=== PATIENT | female | born 1935 | race Caucasian/White ===

== ENCOUNTER 2017-01-03 12:00 | Day surgery (SDC) | payer MEDICARE ==
[~2017-01-03] VITALS: Ht 162.6 cm; Wt 55.0 kg
[~2017-01-03 12:00] MED LIST: 0.9% Sodium Chloride 1,000 ML IV SCH; ASPI-973 PO; CALC600T12 PO; CHOL400T30 PO; LUTE20CA8 PO; METO25TA6 PO; MULT-1073 PO; NITR100 PO; PREG50CA PO; Sodium Chloride LOK Flush 10 mL Syringe IV PRN; TERA2CAP4 PO; fentaNYL-PF 50 mCg/mL 2 mL Inj IVPUSH PRN
[2017-01-03] MEDS ORDERED: ATEN25TA PO (13:12)
[2017-01-03 13:15] VITALS: BP 146/86; PULSE 68; RESP 12; O2SAT 96
[2017-01-03 14:18] VITALS: BP 118/75; PULSE 69; RESP 14; O2SAT 92
[2017-01-03 14:25] VITALS: BP 126/71; PULSE 63; RESP 14; O2SAT 96
[2017-01-03 14:36] VITALS: BP 142/68; PULSE 64; RESP 14; O2SAT 95
--- NOTE | 2017-01-03 14:55 | ENDO ---
[address] [address] ENDOSCOPY PROCEDURE PATIENT: CHARLINE ANGULO : 1935 MR#: [id number] ADMIT: 01/03/2017 JOB ID: [id number] PROCEDURE: Colonoscopy. INDICATION: Abdominal pain. Patient's ASA classification is II. Mallampati score is II. MEDICATIONS: Versed at 3 mg, fentanyl 75 mcg. INSTRUMENT USED: PCF-H180AL. Prep quality was poor of the left colon and fair at of the remainder of the colon. PROCEDURE DETAILS: After informed consent was obtained, the patient was brought into the GI suite, where she was placed on oxygen via nasal cannula and monitored with continuous pulse oximeter, telemetry, and blood pressure monitoring. A time-out was performed. Then, she was placed in a left lateral decubitus position. Medications were administered for sedation. A digital rectal exam was performed which was unremarkable. The colonoscope was then inserted into the rectum and advanced under direct visualization to the cecum, which was identified by the presence of the ileocecal valve and appendiceal orifice. Once the cecum was reached, the colonoscope was withdrawn back into the rectum and the mucosa and lumen were examined. In the rectum, retroflexion was performed. Following retroflexion, remaining air in the rectum was suctioned, and procedure was completed. FINDINGS: 1. The prep of the descending colon was poor. Therefore, views were suboptimal. Also noted was severe diverticulosis making advancement of the scope to the cecum moderately difficult. 2. In the proximal ascending colon there were three colon polyps ranging in size from 5 mm to approximately 1 cm. The 5 mm polyp was removed with a hot snare. Following this there was bleeding at the polypectomy site. Therefore, one hemoclip was placed. 3. Just distal to this was a flat polyp measuring approximately 1 cm. The polyp was lifted using normal saline and then removed piecemeal with a combination of hot snare and hot biopsy forceps. The resulting mucosal defect was approximated with placement of one hemoclip. I attempted to place another hemoclip just superior to the previously placed hemoclip. However, I was unable to get adequate tilt position to deploy the clip. 4. Just adjacent to this was a another flat polyp measuring approximately 8 mm. I elected to remove this polyp with Jumbo biopsy forceps. IMPRESSION: 1. Three ascending colon polyps. 2. Severe sigmoid diverticulosis. 3. Poor prep of the left colon. RECOMMENDATIONS: Repeat colonoscopy in one year. COMPLICATIONS: None. ESTIMATED BLOOD LOSS: Less than 5 mL.
--- NOTE | 2017-01-07 12:44 | PATH ---
SURGICAL PATHOLOGY Attending Physician:Marilyn Bolanos CASE STATUS: Signed Out PATIENT NAME: CHARLINE ANGULO PID: [id number] : 1935 DATE COLLECTED:01/03/2017 00:00 SPECIMEN: Colon, Biopsy CLINICAL HISTORY: 1). ASCENDING COLON POLYPS X3 FINAL DIAGNOSIS: 1.ASCENDING COLON POLYPS: SESSILE SERRATED ADENOMAS (THREE). A SINGLE FOCUS OF LOW-GRADE DYSPLASIA IS PRESENT. NO EVIDENCE OF MALIGNANCY OR HIGH-GRADE DYSPLASIA. ICD10 CODE D12.6 GROSS DESCRIPTION: The specimen is received in one formalin filled container labeled with the patient's name, sublabeled "ascending colon polyps" and consists of multiple portions of tissue which aggregate to 0.7 x 0.6 x 0.4 CM. The specimen is filtered and entirely submitted in one cassette. 01/04/2017 [facility] MICRO DESCRIPTION: See diagnosis. ICD-9 CODES: CPT CODES: 1: 14878 Electronically Signed Out Jose G Reece MD [facility] [address], [place] [address] Technical component performed at [facility], [address] [place] [address] Ave[address], [place], [address]
== END 2017-01-03 23:59 | disposition home or self-care (01) ==
LOC: END 12:00
PROVIDERS: ATTEND Internal Medicine Gastroenterology
DX: Z12.11 Encounter for screening for malignant neoplasm of colon (principal); Z86.010 Personal history of colon polyps; D12.2 Benign neoplasm of ascending colon; K57.30 Diverticulosis of large intestine without perforation or abscess without bleeding; I10 Essential (primary) hypertension; Z79.82 Long term (current) use of aspirin
CPT/HCPCS: 45380; 45381; 45385; 88305; 99153; G0500; J2250; J3010; J7030

== ENCOUNTER 2017-06-14 14:02 | Observation (INO) | payer MEDICARE ==
[~2017-06-14] VITALS: Ht 162.6 cm; Wt 54.0 kg
[2017-06-14] VITALS (18 sets, daily range): BP systolic 131–170; BP diastolic 64–94; PULSE 57–78; RESP 13–20; O2SAT 93–98
[~2017-06-14 14:02] MED LIST changes: -0.9% Sodium Chloride 1,000 ML IV SCH; +ATEN25TA PO; -NITR100 PO; -Sodium Chloride LOK Flush 10 mL Syringe IV PRN; -fentaNYL-PF 50 mCg/mL 2 mL Inj IVPUSH PRN
[2017-06-14] MEDS ORDERED: LATA2.5D6 BOTH_EYES (14:21)
[2017-06-14] MEDS ORDERED: CALCIT PO (14:21)
[2017-06-14 14:25] LABS: BASOPHILS % (AUTO) 0.2 % (0-3); EOSINOPHILS % (AUTO) 0.2 % (0-5); MONOCYTES % (AUTO) 8.8 % (4-12); Mean Corpuscular Volume 94.2 fL (81-100); Platelet Count 187 bil/L (150-400)
[2017-06-14] MEDS ORDERED: Nitroglycerin 2% 1 Gm Ointment TOPICAL ONE (14:35)
[2017-06-14 14:49] LABS: TROPONIN T < 0.010 ug/L (0.0-0.011)
[2017-06-14 14:52] LABS: Magnesium 2.2 mg/dL (1.6-2.6)
--- NOTE | 2017-06-14 15:04 | ED.REPORT ---
HPI-Chest Pain 40 and Over Date of Service Jun 14, 2017 ED Provider: Sukhjinder Carrion DO Patient is a 81 year old female with a hx of HTN, GERD and arthritis who presents to the ED via EMS c/o intermittent left side chest pain onset about 12: 00 today. She describes pain as radiating to the left side of her neck and rates severity as 3/10. Patient has had pain as intermittent for the last 2 weeks and worsens with exertion. Additional symptoms include shortness of breath and palpitations. She denies nausea or diaphoresis. Urgent Clinic gave aspirin and nitro which has relieved symptoms temporarily. She takes amlodipine and metoprolol for HTN, and Lyrica for arthritis. Her last echocardiogram was in 2013 showing an ejection fraction of 60%, and mild mitral regurgitation. Nursing Notes Stated Complaint: CHEST PAIN Chief Complaint: Chest Pain Nursing Notes Reviewed: Yes Allergies: Coded Allergies: QUYEN Inhibitors (Verified Allergy, Unknown, 01/03/17) Penicillins (Verified Allergy, Unknown, 01/03/17) Uncoded Allergies: AM (Allergy, Unknown, 06/25/15) Scheduled Aspirin (Aspirin) 81 Mg Tablet 162 MG PO BID Calcium Citrate (Calcium Citrate) 250 Mg Tablet 250 MG PO DAILY Cholecalciferol (Vitamin D3) (Vitamin D) 400 Unit Tablet 400 UNIT PO DAILY Latanoprost (Latanoprost) 2.5 Ml Drops 1 GTT BOTH_EYES HS Lutein (Lutein) 20 Mg Capsule 20 MG PO DAILY Metoprolol Tartrate (Metoprolol Tartrate) 25 Mg Tablet 25 MG PO BID Multivits-Min/FA/Lycopene/Lut (Centrum Silver Tablet) 1 Each Tablet 1 EACH PO DAILY Pregabalin (Lyrica) 50 Mg Capsule 50 MG PO BID Terazosin (Terazosin) 2 Mg Capsule 2 MG PO BID General Time Seen by MD: 14:24 Chief Complaint Chest pain Hx Obtained From: Patient, Son, Daughter Arrived By: Ambulance Sudden in Onset?: Yes Onset Occurred: 1 - 4 hours ago Symptom Duration: Intermittent Location: : Chest left Quality: Pressure Radiation: : Neck Severity: Current: Pain level 3 out of 10 Severity: Maximum: Pain level 5 out of 10 Recent Healthcare: No recent doctor visit Similar Sx Previous: No Risk Factors )( CAD Risk Stratification Hypertension )( TAD Risk Stratification Hypertension Past Medical History Past Medical History Rheumatic fever Mitral valve disease Reports: Hypertension Past Surgical History Reports: Tonsillectomy Smoking History Unknown if Ever Smoker Social History Other Social History: Good social support Review of Systems Respiratory: Reports: Shortness of breath Cardiovascular: Reports: Chest pain, Palpitations GI: Denies: Diarrhea, Nausea, Vomiting Musculoskeletal: Reports: Myalgia, Denies: Back pain Skin: Denies Diaphoresis, Denies Rash Complete sys rev & neg: except as marked. Physical Exam Initial Vital Signs Vital Signs (First) Date Time Temp Pulse Resp B/P Pulse Ox O2 Delivery O2 Flow Rate FiO2 06/14/17 14:15 37.0 73 16 153/83 95 Room Air Initial VS: Reviewed, Vital signs normal Head / Eyes: Atraumatic, Normocephalic Neck: Supple, Full range of motion Skin: Warm, Dry, No cyanosis Neurologic: Alert, Oriented, Nonfocal Psychiatric: Mood/affect normal, Behavior normal, Normal thought content General/Constitutional: Awake, Alert, No acute distress, Cooperative, Not toxic appearing Respiratory / Chest: Atraumatic, Breath sounds NL, Breath sounds = bilat, No respiratory distress Cardiovascular: Heart rate NL, Regular rhythm 2/6 Systolic murmur heard best at lower strenal border No peripheral edema Abdomen: Atraumatic, Soft Interpretation & Diagnostics Lab Results Interpretation Result Diagram: 06/14/17 1421 06/14/17 1421 Test 06/14/17 14:21 06/14/17 14:39 White Blood Count 8.2th/mm3 (3.8-10.1) Red Blood Count 4.51mil/mm3 (3.90-5.20) Hemoglobin 14.0g/dL (12.0-15.6) Hematocrit 42.5% (35.0-46.0) Mean Corpuscular Volume 94.2fL (81-100) Mean Corpuscular Hemoglobin 31.0pg (27.0-35.0) Mean Corpuscular Hemoglobin Concent 32.9% (32.0-37.0) Red Cell Distribution Width 14.5% (12.3-15.4) Platelet Count 187bil/L (150-400) Neutrophils (%) (Auto) 60.0% (40-74) Lymphocytes (%) (Auto) 30.7% (14-46) Monocytes (%) (Auto) 8.8% (4-12) Eosinophils (%) (Auto) 0.2% (0-5) Basophils (%) (Auto) 0.2% (0-3) Sodium Level 142mEq/L (134-144) Potassium Level 3.5mEq/L (3.5-5.2) Chloride Level 102mEq/L (97-108) Carbon Dioxide Level 25mmol/L (18-29) Blood Urea Nitrogen 11mg/dL (8-27) Creatinine 0.53mg/dL (0.57-1.00) Estimat Glomerular Filtration Rate 159mL/min (>59) Glucose Level 97mg/dL (60-99) Calcium Level 9.9mg/dL (8.5-10.1) Magnesium Level 2.2mg/dL (1.6-2.6) Total Bilirubin 0.4mg/dL (0.0-1.2) Aspartate Amino Transf (AST/SGOT) 22U/L (0-50) Alanine Aminotransferase (ALT/SGPT) 13U/L (0-32) Alkaline Phosphatase 71U/L (25-165) Troponin T < 0.010ug/L (0.0-0.011) Total Protein 6.6g/dL (6.4-8.4) Albumin 4.2g/dL (3.4-5.0) Hold Purple Top Tube Received (Received) Hold Blue Top Tube Received (Received) Hold Red Top Tube Received (Received) Hold [place] Top Tube Received (Received) Hold Mendoza Top Tube Received (Received) ECG Interpretation ECG Interpretation: Sinus rhythm, rate 75 Left venticular hypertrophy No acute ST changes No change from 06/25/2015. Time: 14:25 Interpreted by: ED physician X-Ray Chest Interpretation Chest Xray Interpretation: IMPRESSION: No radiographic evidence of acute cardiopulmonary pathology. Dictated by: Rock Chavarria M.D. on 06/14/2017 at 15:16 Approved by: Rock Chavarria M.D. on 06/14/2017 at 15:18 View: Portable, 1 view Re-Eval/Medical Decision Med Decision/Clinical Course 81-year-old female with a history of hypertension, GERD, and mitral valve disease related to rheumatic fever presents with several days of intermittent exertional chest pressure on the left side that has recently worsened. She came today because the pain was not relieved with rest and was worse than before. Today it started around noon and she rated it at a 5 out of 10. It radiated to her left jaw and was associated with some shortness of breath., It was relieved at the urgent care with nitroglycerin and aspirin. Her EKG shows no acute findings, her chest x-ray is normal, and her troponin initially is negative. Given her history of unstable angina, she needs to be admitted with further evaluation, likely including a stress test. I reviewed her echocardiogram from 2013 that showed an EF of 60% with mild mitral regurgitation. There are no signs of heart failure on her physical exam today. Patient is agreeable to stay here with us. Source of Hx: Old records Time of Eval: 15:15 Patient Status: Condition improved Re-Evaluation/Progress Note: Discussed plan for admission. Patient understands and agrees with plan. All questions addressed. Consultation : Referral / Consult Name: Elmer Joya MD Consulted With: Hospitalist Call Returned at: 16:30 Rv Servicer: Will see patient, Agrees with plan, Accepts admit Counseled Regarding: Diagnosis, Lab results, Need for admission Discharge & Departure Primary Impression: Chest pain Chest pain type: precordial pain Qualified Code: R07.2 - Precordial pain Additional Impression: Unstable angina Disposition: ADMITTED TO HOSPITAL Discharge Condition All VS Reviewed: Yes Condition: Stable Referrals: Giovana Austin MD (PCP) Scribe Attestation Portions of this note were transcribed by Otilia Hernandez and Dulce Maria Kidd. I, Dr. Carrion, personally performed the history, physical exam and medical decision-making; I reviewed and confirmed the accuracy of the information in the transcribed note. copies to: Giovana Austin MD, Gary R DO Jun 14, 2017 15:04 Otilia Hernandez Jun 14, 2017 15:12 DULCE MARIA KIDD Jun 14, 2017 16:14
--- NOTE | 2017-06-14 15:19 | DRSVH ---
PROCEDURE: X-RAY CHEST ONE VIEW, PORTABLE ([id number]) INDICATIONS: chest pain TECHNIQUE: One view of the chest was acquired. COMPARISON: [facility], CR, XR CHEST 1VW (PORTABLE), 06/25/2015, 15:32. FINDINGS: Surgical changes and devices: None. Lungs and pleura: No pleural effusions or pneumothorax. Lungs are clear. Mediastinum: Mediastinal contours appear normal. Heart size is normal. Bones and chest wall: No suspicious bony lesions. Overlying soft tissues appear unremarkable. IMPRESSION: No radiographic evidence of acute cardiopulmonary pathology. Dictated by: Rock Chavarria M.D. on 06/14/2017 at 15:16 Approved by: Rock Chavarria M.D. on 06/14/2017 at 15:18
[2017-06-14] MEDS ORDERED: Atropine 1 mg/10 mL (Code) Syringe IVPUSH PRN (16:35)
[2017-06-14] MEDS ORDERED: Ondansetron 2 mg/mL 2 mL Inj IVPUSH PRN (16:35)
[2017-06-14] MEDS ORDERED: Alum-Mag Hydrox-Simeth 30 mL Suspension PO PRN (16:35)
[2017-06-14] MEDS ORDERED: Polyethylene Glycol (PEG) 17 Gm Powder PO PRN (16:35)
[2017-06-14] MEDS ORDERED: Senna-Docusate 8.6-50 mg Tablet PO PRN (16:35)
--- NOTE | 2017-06-14 18:09 | PCM.HPMED ---
Subjective Date of Service Jun 14, 2017 Primary Provider: Admitting Physician: Elmer Joya MD Primary Care Physician: Giovana Austin MD Attending Physician: Elmer Joya MD Admit Status: From the Emergency Department, Admit to [facility] Team Chief Complaint: 81-year-old woman with a history of hypertension presents with exertional chest pressure History of Present Illness: The patient is fully active and manages her home and garden. Approximate 2 months ago she noticed onset of a episodic left precordial heaviness sensation with activity. The discomfort is located left of the sternum without radiation. It is precipitated by activities within 5 minutes of getting up and moving around. It is relieved with rest. Character is heaviness, not pain. It is associated with a sense of weakness in her legs. Most episodes have been brief and responsive promptly to rest. On the day of admission at approximately 10 AM she experienced the same complaint but somewhat increased intensity. She was advised to go to urgent care where they gave her needed nitroglycerin and she experienced pain relief. The urgent care note documented 30 minutes of chest pain prior to arrival. She reports symptom relief with nitroglycerin at urgent care, then recurrent pain at [facility] emergency department. Today's chest discomfort was associated with radiation to the left side of the neck, but no nausea, diaphoresis, epigastric, arm or back complaints. This complaint is new as of 2 months ago. She has no prior history of coronary artery disease. Review of Systems: 11 systems were reviewed with no significant findings other than those in the history of present illness. She experienced periodic burning dysesthesia of hands and feet due to erythromelalgia. Allergies Coded Allergies: QUYEN Inhibitors (Verified Allergy, Unknown, 01/03/17) Penicillins (Verified Allergy, Unknown, 01/03/17) Uncoded Allergies: AM (Allergy, Unknown, 06/25/15) Home Medications Aspirin 81 mg daily Pregabalin 50 mg twice a day Metoprolol 25 mg twice a day Terazosin 2 mg at bedtime Vitamin D and calcium supplement Latanoprost eyedrops every evening PMH # Hypertension # Erythromelalgia excellent # history of rheumatic fever with murmur # Mild cognitive impairment # Chest pain is listed in her record dated from 2013 but patient does not recall this. Family History Colon cancer. No premature coronary artery disease. Social History Occupation: retired Hx Alcohol Use: No Hx Substance Use: No Hx Tobacco Use: No Smoking Status: Unknown if Ever Smoker Living Arrangement: Alone (son lives nearby) Additional Information Ambulates independently. She manages full ADLs. Walks daily for exercise. 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 Exam Vital Signs Vital Sign - Last Date Time Temp Pulse Resp B/P Pulse Ox O2 Delivery O2 Flow Rate FiO2 06/14/17 17:32 37.0 66 15 134/74 95 Room Air Exam Constitutional: appears fairly uncomfortable; no acute distress; vital signs noted Eyes: sclerae anicteric, no conjunctival pallor, ENMT: ears, nose atraumatic; oral mucosa is moist Neck: supple, JVD absent, no bruit Chest: symmetric, no pain or lesions Resp: auscultation clear, no wheezes, rales or dullness Cardiac: S1, S2, regular, I/ systolic murmur at [facility] Abdomen: bowel sounds present, nontender, no organomegaly Musculoskeletal: no joints with acute erythema, swelling Skin and soft tissues: no rash; no pitting edema; no palmar erythema Lymphatic: no adenopathy cervical Neurological: Cranial Nerves - face symmetric Reflexes - BJ, KJ symmetric diminished Motor - normal strength, normal tone Coordination - normal movement, no tremor Sensory - light touch intact in toes Psych & Mental Status - oriented but small cognitive omissions and confusions Lab and Diagnostics Labs Initial troponin less than 0.01 Result Diagram: 06/14/17 1421 06/14/17 1421 X-Rays, CTs and MRIs PROCEDURE: X-RAY CHEST ONE VIEW, PORTABLE ([id number]) IMPRESSION: No radiographic evidence of acute cardiopulmonary pathology. Dictated by: Rock Chavarria M.D. on 06/14/2017 at 15:16 . 12-lead ECG 06/14/17 sinus rhythm rate 75, QRS axis -40, Q waves V1 and V2 but no acute ST or T-wave changes. Assessment & Plan 81-year-old woman with history of hypertension presents with chest pressure complaint most suggestive of unstable angina. Reproducible transient exertional pain seems unlikely to be gastrointestinal, vascular dissection, pleuritic or chest wall. Transient esophageal spasm is possible. Pretest probability for coronary artery disease is high due to exertional chest pain responsive to nitroglycerin. # Chest pressure, acute. - Serial troponins, ECG for recurrent symptoms, - nitroglycerin and morphine when necessary - Continue her current metoprolol; increased dose if hypertensive - Therapeutic anticoagulation with subcutaneous Lovenox - low likelihood of urgent catheterization - Telemetry monitoring - Exercise treadmill with Lisseth back up nuclear perfusion scan in a.m. if troponins remain flat line - Complete echocardiogram - check d-dimer # Hypertension, acute on chronic. BP 153/83 at time of admission. - Continue her usual metoprolol - Amlodipine as needed # Hypokalemia, borderline. Present on admission. Potassium 3.5. - Supplement to K greater than 4.0 - Repeat BMP in a.m. # Mild cognitive impairment, chronic. High risk for hospital delirium - Minimize benzodiazepine and anticholinergic medications Disposition: Patient will be admitted under observation status. Expectation that cardiac source of chest pain will be defined by tomorrow afternoon. If negative she may be able to discharge home on 06/15. If she develops NSTEMI or other acute medical complications then status will be changed to inpatient. Pain Evaluation: Adequate Pain Control VTE Prophylaxis: Sub-Q Enoxaparin Resuscitation Status: DNR/DNI:Do Not Resuscitate/Intubate Time spent 60 minutes Elmer Joya MD Jun 14, 2017 18:09
[2017-06-14 18:11] LABS: APPEARANCE,URINE CLEAR (CLEAR,HAZY); COLOR,URINE YELLOW (YELLOW); OCCULT BLOOD,URINE NEGATIVE (NEGATIVE); PH,URINE 5.5 (5.0-8.0); UROBILINOGEN,URINE NORMAL (NORMAL)
--- NOTE | 2017-06-14 18:27 | PCM.ADCARE ---
Advance Care Planning Note Purpose of Encounter: Clarify goals of care in the setting of cardiac arrest Parties in Attendance: The patient, Dr. Joya Decisional Capacity: The patient is alert and appropriate and demonstrates insight into her medical affairs, albeit with very mild cognitive impairment. Subjective: When asked regarding instructions in the event of a catastrophic cardiac or respiratory event, the patient indicated that she would not wish to be sustained in a state of reduced health quality or physical dependency. She reflected that she has lived a long life and lost her recently. She added that she has a good quality of life and activities with her grandchildren for which she would like to return to her current functional status. For this reason she would wish for reversible conditions to be treated fully. She identified prolonged hospitalization, living in a fci or significant physical or neurological impairment as outcomes that she would not welcome. Goals of Care Determinations: Patient endorsed DO NOT RESUSCITATE and DO NOT INTUBATE in the setting of cardiac arrest or acute respiratory arrest. Plan: DO NOT RESUSCITATE/DO NOT INTUBATE otherwise full medical treatment for reversible conditions. Time Spent Adv.Care Plannin minutes Adv. Care Plan Documenation: CODE STATUS ordered in admission orders set Elmer Joya MD Jun 14, 2017 18:27
[2017-06-14 18:31] LABS: Creatine Kinase 62 U/L (21-215); Magnesium 2.2 mg/dL (1.6-2.6)
--- NOTE | 2017-06-14 18:43 | NUR ---
Arrived 1727 - Received report from Cecilia Gloria RN in the ED. 1752 - Cecilia said she was complaining of increased chest pain and that 2 mg of IV morphine was given to her. 1824 - She arrived to [facility] 2029 and was settled into her room. Non-skid socks placed, telemetry placed (SR 70s per [employer]), given the call light. She stated upon standing up from the gurney and going to the bed that she was dizzy. She thought this was from the fact of not having eaten anything all day. Was given a dinner tray and is now eating. Son present in the room. Admit already completed by the admit nurse. Assessment completed by this nurse including the skin check (no skin issues found). Denies chest pain at this time. Care continues.
[2017-06-14 18:44] LABS: TROPONIN T < 0.010 ug/L (0.0-0.011)
[2017-06-14] MEDS: 0.9% Sodium Chloride 1,000 ML IV SCH (19:55)
[2017-06-14 23:19] LABS: Creatine Kinase 69 U/L (21-215)
[2017-06-15] MEDS: Sodium Chloride LOK Flush 10 mL Syringe IVFLUSH SCH ×2 (00:30→07:42)
--- NOTE | 2017-06-15 02:56 | NUR ---
Tele Pt in room alert and oriented, in good spirits after dinner, family in room to aid with information. No C/O pain or SOB. A&O x 3 using call light appropriately. NS @ 80 in left AC IV. Room Air. Tele SR 56 to SR.
[2017-06-15 03:11] VITALS: BP 135/76; PULSE 55; RESP 18; O2SAT 93
[2017-06-15 03:42] LABS: BASOPHILS % (AUTO) 0.4 % (0-3); EOSINOPHILS % (AUTO) 1.6 % (0-5); MONOCYTES % (AUTO) 13.2 % (4-12); Mean Corpuscular Hemoglobin 30.9 pg (27.0-35.0); Mean Corpuscular Volume 91.9 fL (81-100); NEUTROPHILS % (AUTO) 47.3 % (40-74); Platelet Count 185 bil/L (150-400)
[2017-06-15 05:40] VITALS: PULSE 58
[2017-06-15 07:32] VITALS: BP 165/82; PULSE 62; RESP 16; O2SAT 96
[2017-06-15] MEDS: 0.9% Sodium Chloride 1,000 ML IV SCH (07:42)
[2017-06-15 08:00] VITALS: PULSE 73
--- NOTE | 2017-06-15 09:46 | DRSVH ---
PROCEDURE: CT ANGIO CHEST PULMONARY EMBOLISM ([id number]) INDICATIONS: 82 year-old female with chest pain and elevated d-dimer level. TECHNIQUE: After the administration of intravenous contrast, 2 mm thick sections acquired from the pulmonary api philip to the posterior costophrenic angles. 3-dimensional maximum intensity projection (MIP) coronal a nd sagittal reformats were then acquired through the thorax. For radiation dose reduction, the follo wing was used: automated exposure control, adjustment of mA and/or kV according to patient size. COMPARISON: [facility], CT, CT ABD PELVIS W CON, 03/20/2017, 11:19. FINDINGS: Image quality: Excellent. Pulmonary arteries: Pulmonary arteries are normal in size, and demonstrate no intraluminal filling d efects to suggest central pulmonary embolism. Lungs and pleura: No acute airspace opacities. There is bibasilar dependent atelectasis, as well as lateral right upper lobe scarring. Scattered punctate calcified granulomas are also present. No pleur al effusions or pneumothorax. Central and peripheral airways are patent. Mediastinum: Heart size is upper normal, without pericardial effusion. No mediastinal or hilar lam opathy. Thoracic aorta is normal in caliber and enhancement. Esophagus is normal in caliber, withou t hiatal hernia. Bones and chest wall: No suspicious bony lesions. Ribs and thoracic spine appear intact throughout. Thyroid gland is normal in overall size. No axillary or supraclavicular adenopathy. Abdomen: Visualized upper abdominal solid organs appear normal in the early arterial phase of enhanc ement. IMPRESSION: 1. No evidence for central pulmonary embolism. 2. No acute pulmonary disease. Pulmonary remote granulomatous disease. Dictated by: Dennis Rose M.D. on 06/15/2017 at 9:37 Approved by: Dennis Rose M.D. on 06/15/2017 at 9:44
[2017-06-15] MEDS ORDERED: hydrALAZINE 20 mg/mL Inj IV ONE (10:35)
[2017-06-15 12:37] VITALS: BP 182/92; PULSE 66; RESP 16; O2SAT 95
--- NOTE | 2017-06-15 13:10 | NUR ---
JOSUÉ explained and signed. Copy of JOSUÉ and Medicare self administered medication information given to pt.
--- NOTE | 2017-06-15 13:11 | DRSVH ---
CORRECTED PROCEDURE NAME AND ACCESSION/PLACER # ON 06/16/17 PROCEDURE: NM CARDIAC STRESS TEST SINGLE Rest and exercise myocardial perfusion SPECT with gated imaging and ejection fraction RADIOPHARMACEUTICAL: 21.7 mCi Tc-99m tetrafosmin IV at peak exercise. Rest images were not obtained . [id number] was performed. INDICATIONS: CP. TECHNIQUE: Radiopharmaceutical was injected at peak stress test, and also at rest. SPECT images wer e obtained. SPECT myocardial perfusion images were displayed in short axis, horizontal long axis, an d vertical long axis views. Gated images were reviewed using [employer] software. COMPARISON: None. CARDIAC STRESS: A standard Jem treadmill exercise tolerance test was performed by the patient under the supervision of an attending staff. The patient exercised for 6 minutes and 9 seconds, reaching 7 METs; function al aerobic impairment (TIMOTHY) is -27%. Hemodynamic data: There is normal blood pressure and heart rate response to exercise stress. Patien t achieved 101% of maximum predicted heart rate at peak exercise. Symptoms: Patient mild chest pain during exercise. EKG: No diagnostic EKG changes of ischemia; Occasional PACs and PVCs during stress and recovery. FINDINGS: Raw data: There is good myocardial labeling by radiotracer. No significant motion artifacts. Left ventricle function: Gated images demonstrate normal left ventricle wall thickening. No segment al wall motion abnormality. No transient ischemic dilation. The left ventricle resting end-diastoli c volume is 51 mL. Left ventricle stress ejection fraction is 87%; normal values are above 45%. Myocardial perfusion: Mild defect present at the basal to mid inferolateral wall during stress supin e images that resolves with prone images suggesting artifact. No ischemia or infarction present. IMPRESSION: Normal treadmill nuclear stress test. One day stress only protocol used. 1) Normal perfusion images, with no ischemia and no infarction. Mild defect present at the basal to m id inferolateral wall during stress supine images that resolves with prone images suggesting artifact . 2) Normal left ventricular size, wall motion, and function (post stress EF 87%). 3) No ECG evidence of ischemia. Occasional PACs and PVCs present during stress and recovery. 4) Non-diagnostic chest pain during the stress test. 5) Good exercise tolerance (7 METs, TIMOTHY -27%). Target heart rate reached. Appropriate hemodynamic r esponse to exercise. 6) No prior nuclear stress test available for comparison. Dictated by: Phyllis Wallace M.D. on 06/15/2017 at 13:04 Approved by: Phyllis Wallace M.D. on 06/15/2017 at 13:10
[2017-06-15] MEDS ORDERED: NITR0.4T SL (14:32)
--- NOTE | 2017-06-15 14:35 | PCM.DIMED ---
Discharge Instructions Date of Service Jun 15, 2017 Dates of Hospitalization Jun 14, 2017 at 17:17 Discharge Diagnosis Discharge Diagnosis Exertional dyspnea, Chest pressure, Mild cognitive impairment Medication Instructions Additional med instructions Nitroglycerin tablets have been prescribed. You may take 1 tablet under the tongue when you have chest pressure. You should also sit and rest; be careful in case this makes her dizzy. You may repeat after 5 minutes. If this does not help in that time then you do not need to take more nitroglycerin. Tell your doctor whether nitroglycerin seems to help with your chest pressure and shortness of breath. Diet Discharge Diet: No restrictions Activity Discharge Activity: Other (Be careful with physical activities, take these at an appropriate slow pace if you are having shortness of breath or chest pressure.) Patient Instructions Patient Instructions Try to keep track of the circumstances under which you feel chest pressure. It may be helpful to stay with family members who can help you keep track of any problems. If you experience worsening chest discomfort or any new symptoms, then you should call 911 or your doctor's office promptly. Follow-up Provider: Giovana Austin MD Follow-up with PCP in: 1 week Elmer Joya MD Jun 15, 2017 14:35
--- NOTE | 2017-06-15 15:07 | PCM.DC.MED ---
Discharge Summary Date of Service Jun 15, 2017 Dates of Hospitalization Date of Hospital Admission Jun 14, 2017 at 17:17 Date of Discharge: Jun 15, 2017 Providers: Admitting Physician: Tony Wiley MD Primary Care Physician: Giovana Austin MD Attending Physician: Tony Wiley MD Diagnosis at Time of Discharge Diagnosis at Time of Discharge Exertional dyspnea, Chest pressure, Mild cognitive impairment Procedures XRay, CTs & MRIs PROCEDURE: X-RAY CHEST ONE VIEW, PORTABLE ([id number]) IMPRESSION: No radiographic evidence of acute cardiopulmonary pathology. Dictated by: Rock Chavarria M.D. on 06/14/2017 at 15:16 . ECG 12 Lead 06/14/17 sinus rhythm rate 75, QRS axis -40, Q waves V1 and V2 but no acute ST or T-wave changes. Other Diagnostics PROCEDURE: CT ANGIO CHEST PULMONARY EMBOLISM ([id number]) IMPRESSION: 1. No evidence for central pulmonary embolism. 2. No acute pulmonary disease. Pulmonary remote granulomatous disease. Dictated by: Dennis Rose M.D. on 06/15/2017 at 9:37 PROCEDURE: 1 DAY STRESS TEST Rest and exercise myocardial perfusion SPECT with gated imaging and ejection fraction RADIOPHARMACEUTICAL: 21.7 mCi Tc-99m tetrafosmin IV at peak exercise. Rest images were not obtained. [id number] was performed. INDICATIONS: CP. TECHNIQUE: Radiopharmaceutical was injected at peak stress test, and also at rest. SPECT images were obtained. SPECT myocardial perfusion images were displayed in short axis, horizontal long axis, and vertical long axis views. Gated images were reviewed using [employer] software. COMPARISON: None. CARDIAC STRESS: A standard Jem treadmill exercise tolerance test was performed by the patient under the supervision of an attending staff. The patient exercised for 6 minutes and 9 seconds, reaching 7 METs; functional aerobic impairment (TIMOTHY) is - 27%. Hemodynamic data: There is normal blood pressure and heart rate response to exercise stress. Patient achieved 101% of maximum predicted heart rate at peak exercise. Symptoms: Patient mild chest pain during exercise. EKG: No diagnostic EKG changes of ischemia; Occasional PACs and PVCs during stress and recovery. FINDINGS: Raw data: There is good myocardial labeling by radiotracer. No significant motion artifacts. Left ventricle function: Gated images demonstrate normal left ventricle wall thickening. No segmental wall motion abnormality. No transient ischemic dilation. The left ventricle resting end-diastolic volume is 51 mL. Left ventricle stress ejection fraction is 87%; normal values are above 45%. Myocardial perfusion: Mild defect present at the basal to mid inferolateral wall during stress supine images that resolves with prone images suggesting artifact. No ischemia or infarction present. IMPRESSION: Normal treadmill nuclear stress test. One day stress only protocol used. 1) Normal perfusion images, with no ischemia and no infarction. Mild defect present at the basal to mid inferolateral wall during stress supine images that resolves with prone images suggesting artifact. 2) Normal left ventricular size, wall motion, and function (post stress EF 87%). 3) No ECG evidence of ischemia. Occasional PACs and PVCs present during stress and recovery. 4) Non-diagnostic chest pain during the stress test. 5) Good exercise tolerance (7 METs, TIMOTHY -27%). Target heart rate reached. Appropriate hemodynamic response to exercise. 6) No prior nuclear stress test available for comparison. Dictated by: Phyllis Wallace M.D. on 06/15/2017 at 13:04 .. Brief History History of Present Illness (per admission note): The patient is fully active and manages her home and garden. Approximate 2 months ago she noticed onset of a episodic left precordial heaviness sensation with activity. The discomfort is located left of the sternum without radiation. It is precipitated by activities within 5 minutes of getting up and moving around. It is relieved with rest. Character is heaviness, not pain. It is associated with a sense of weakness in her legs. Most episodes have been brief and responsive promptly to rest. On the day of admission at approximately 10 AM she experienced the same complaint but somewhat increased intensity. She was advised to go to urgent care where they gave her needed nitroglycerin and she experienced pain relief. The urgent care note documented 30 minutes of chest pain prior to arrival. She reports symptom relief with nitroglycerin at urgent care, then recurrent pain at [facility] emergency department. Today's chest discomfort was associated with radiation to the left side of the neck, but no nausea, diaphoresis, epigastric, arm or back complaints. This complaint is new as of 2 months ago. She has no prior history of coronary artery disease. . Hospital Course # Chest pressure, acute. - High prior probability of coronary disease with: Left precordial location, exercise trigger, relief with nitroglycerin. Her reporting was occasionally inconsistent, and on one or 2 occasions she reports chest heaviness at rest. 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 Echocardiogram from 2013 shows no cardiac disease. Echo was not repeated during this week and admission may be considered as an outpatient. She has II/ ejection murmur at [facility]. - Final diagnosis is either low risk angina versus noncardiac chest pain ( esophageal spasm). Given her history of symptomatic relief with nitroglycerin, sublingual nitroglycerin tablets were prescribed for symptom management. - Beta heladio continued. Low-dose aspirin. Medium intensity statin decision deferred to primary care provider, as there is no clear diagnosis of coronary disease at this time. - She is encouraged to keep track of symptoms including precipitants and circumstances. Due to her mild cognitive impairment this may be difficult. # Noncardiac chest pain. d-dimer was elevated, commonly false positive in elderly patients. CT angiogram was negative. # Hypertension, acute on chronic. BP 153/83 at time of admission. - Continue her usual metoprolol - Amlodipine was used for additional inpatient blood pressure management # Hypokalemia, borderline. Present on admission. Potassium 3.5. - Supplemented # Mild cognitive impairment, chronic. High risk for hospital delirium - Minimize benzodiazepine and anticholinergic medications Exam Vital Signs (Last) Date Time Temp Pulse Resp B/P Pulse Ox O2 Delivery O2 Flow Rate FiO2 06/15/17 12:37 37.0 66 16 182/92 95 Room Air Exam General: Fit appearing no acute distress HEENT: sclerae anicteric, oral mucosa moist Neck: no JVD Chest: clear to auscultation Cardiac: S1S2, II/ murmur that L Love P without radiation Abdomen: BS normal, non-tender Extremities: No edema Neuro: A&O with mild cognitive impairment, cranial nerves symmetric, motor strength 5/5, coordination normal Test 06/14/17 14:21 06/14/17 14:39 06/14/17 16:00 06/14/17 17:50 Total Bilirubin 0.4mg/dL (0.0-1.2) Aspartate Amino Transf (AST/SGOT) 22U/L (0-50) Alanine Aminotransferase (ALT/SGPT) 13U/L (0-32) Alkaline Phosphatase 71U/L (25-165) Total Protein 6.6g/dL (6.4-8.4) Albumin 4.2g/dL (3.4-5.0) Hold Purple Top Tube Received (Received) D-Dimer 1.27mg/L FEU (<0.50) Hold Blue Top Tube Received (Received) Hold Red Top Tube Received (Received) Hold Baldwin Top Tube Received (Received) Urine Color Yellow (YELLOW) Urine Appearance Clear (CLEAR,HAZY) Urine pH 5.5 (5.0-8.0) Urine Specific [place] 1.010 (1.003-1.035) Urine Protein Negativemg/dL (NEG,TRACE) Urine Glucose (UA) Negativemg/dL (NEGATIVE) Urine Ketones 15mg/dL (NEGATIVE) Urine Occult Blood Negative (NEGATIVE) Urine Nitrite Negative (NEGATIVE) Urine Bilirubin Negative (NEGATIVE) Urine Urobilinogen Normalmg/dL (NORMAL) Urine Leukocyte Esterase Trace (NEGATIVE) Urine RBC 0-2/hpf (0-2) Urine WBC 0-5/hpf (0-5) Urine Epithelial Cells Occasional/hpf (NONE-MOD) Urine Crystals Amorphous urates (NONE Urine Bacteria Few/hpf (NONE-FEW) Urine Hyaline Casts None/lpf (NONE) Urine Granular Casts None seen (NONE SEEN) Urine Waxy Casts None seen (NONE SEEN) Urine Red Blood Cell Casts None seen (NONE SEEN) Urine White Blood Cell Casts None seen (NONE SEEN) Urine Mucus None seen (None Seen) Urine Trichomonas None seen (NONE SEEN) Urine Yeast None (NONE SEEN) Urinalysis Comment None Urine Culture Reflexed Indicated Magnesium Level 2.2mg/dL (1.6-2.6) Thyroid Stimulating Hormone (TSH) 1.150uIU/mL (0.450-4.500) Hold Mendoza Top Tube Received (Received) Test 06/14/17 22:26 06/15/17 03:15 Total Creatine Kinase 69U/L (21-215) Creatine Kinase MB 1.7ng/mL (0.0-5.3) Creatine Kinase MB % % (0.0-5.0) Troponin T 0.010ug/L (0.0-0.011) White Blood Count 7.5th/mm3 (3.8-10.1) Red Blood Count 4.33mil/mm3 (3.90-5.20) Hemoglobin 13.4g/dL (12.0-15.6) Hematocrit 39.8% (35.0-46.0) Mean Corpuscular Volume 91.9fL (81-100) Mean Corpuscular Hemoglobin 30.9pg (27.0-35.0) Mean Corpuscular Hemoglobin Concent 33.7% (32.0-37.0) Red Cell Distribution Width 14.6% (12.3-15.4) Platelet Count 185bil/L (150-400) Neutrophils (%) (Auto) 47.3% (40-74) Lymphocytes (%) (Auto) 37.4% (14-46) Monocytes (%) (Auto) 13.2% (4-12) Eosinophils (%) (Auto) 1.6% (0-5) Basophils (%) (Auto) 0.4% (0-3) Sodium Level 143mEq/L (134-144) Potassium Level 3.8mEq/L (3.5-5.2) Chloride Level 106mEq/L (97-108) Carbon Dioxide Level 26mmol/L (18-29) Blood Urea Nitrogen 10mg/dL (8-27) Creatinine 0.47mg/dL (0.57-1.00) Estimat Glomerular Filtration Rate 182mL/min (>59) Glucose Level 89mg/dL (60-99) Calcium Level 8.8mg/dL (8.5-10.1) Triglycerides Level 73mg/dL (0-149) Cholesterol Level 184mg/dL (100-199) LDL Cholesterol, Calculated 91.400mg/dL (0-99) VLDL Cholesterol 14.600mg/dL HDL Cholesterol 78mg/dL (>39) Cholesterol/HDL Ratio 2.36 (0.0-4.4) Discharge Medications Discharge Medications Aspirin (Aspirin) 81 Mg Tablet 81 MG PO BID (Reported) Calcium Citrate (Calcium Citrate) 250 Mg Tablet 250 MG PO DAILY (Reported) Cholecalciferol (Vitamin D3) (Vitamin D) 400 Unit Tablet 400 UNIT PO DAILY ( Reported) Latanoprost (Latanoprost) 2.5 Ml Drops 1 GTT BOTH_EYES HS (Reported) Lutein (Lutein) 20 Mg Capsule 20 MG PO DAILY (Reported) Metoprolol Tartrate (Metoprolol Tartrate) 25 Mg Tablet 25 MG PO BID (Reported) Multivits-Min/FA/Lycopene/Lut (Centrum Silver Tablet) 1 Each Tablet 1 EACH PO DAILY (Reported) Pregabalin (Lyrica) 50 Mg Capsule 50 MG PO BID (Reported) Terazosin (Terazosin) 2 Mg Capsule 2 MG PO BID (Reported) As needed Nitroglycerin SL (Nitrostat) 0.4 Mg Tab.subl 0.4 MG SL Q5MIN PRN PRN For Chest Pain 1 tab SL q 5min x 2 for chest pressure Prescribed by: TONY WILEY MD Additional med instructions Nitroglycerin tablets have been prescribed. You may take 1 tablet under the tongue when you have chest pressure. You should also sit and rest; be careful in case this makes her dizzy. You may repeat after 5 minutes. If this does not help in that time then you do not need to take more nitroglycerin. Tell your doctor whether nitroglycerin seems to help with your chest pressure and shortness of breath. Followup Plan Disposition: Home Follow-up plan She has an appointment scheduled with Dr. Austin this week. Discharge Diet: No restrictions Discharge Activity: Other (Be careful with physical activities, take these at an appropriate slow pace if you are having shortness of breath or chest pressure.) Patient Instructions Try to keep track of the circumstances under which you feel chest pressure. It may be helpful to stay with family members who can help you keep track of any problems. If you experience worsening chest discomfort or any new symptoms, then you should call 911 or your doctor's office promptly. Follow-up Provider: Giovana Austin MD Follow-up with PCP in: 1 week Time spent 35 minutes copies to: Giovana Austin MD, Jeffrey W MD Jun 15, 2017 15:07
--- NOTE | 2017-06-15 15:18 | NUR ---
Social Work Note: Initial Assessment/Discharge Data& Assessment: EMR Reviewed. Per MD in multidisciplinary rounds, pt is medically ready to discharge home. [employer] met with pt and pt son at bedside to discuss discharge planning and assess for any unmet needs, SW role explained and Discharge Planning Checklist Packet provided. Celestina Hawkins is a 82 year old female admitted under observation status o 06/14/2017 for chest pain and unstable angina. Per MD pt is medically improved and ready to discharge home. Pt has Medicare and AARP Insurance coverage and she sees Giovana Austin MD for primary care. Pt lives in [place] in a single story home and drives. Pt [place] for extra support when needed. Pt independent with ADL's. Pt does not require any DME at baseline and does not have HH or SNF hx. Pt is independent with self care during this hospitalization and MD does not identify any concerns with capacity for self care. Pt does have LTC insurance and DPOA/AD paperwork completed, SW requested a copy for her chart when possible. Pt does not have VA benefits. Pt son to transport her home this afternoon. Pt and pt son denies any other needs. No other pt needs or MD orders identified. All updated and agreeable to plan. Plan: Per MD pt is medically ready to discharge home via POV. Pt and pt son denies any other needs. No other pt needs or MD orders identified. All updated and agreeable to plan. MARLENE Phan Addendum: 06/15/17 at 1527 by JULIO TANG Amended: Links added.
--- NOTE | 2017-06-15 15:27 | NUR ---
Discharge Patient has had no chest pain/discomfort since admission, VSS. Denies dyspnea, discomfort. Discharge instructions printed and reviewed verbally with patient and her son. Patient teaching on sublingual nitroglycerin reviewed with patient. Patient left unit via with all personal belongings and discharged home via private vehicle
== END 2017-06-15 15:25 | disposition home or self-care (01) ==
LOC: SED 14:02 → PCC 17:17
PROVIDERS: ADMIT Internal Medicine; ATTEND Internal Medicine
DX: R07.89 Other chest pain (principal); R68.84 Jaw pain; R06.09 Other forms of dyspnea; G31.84 Mild cognitive impairment of uncertain or unknown etiology; E87.6 Hypokalemia; I10 Essential (primary) hypertension; Z79.82 Long term (current) use of aspirin; Z66 Do not resuscitate; Z88.0 Allergy status to penicillin; Z86.19 Personal history of other infectious and parasitic diseases
CPT/HCPCS: 36415; 71010; 71275; 78451; 80048; 80053; 80061; 81000; 82550; 82553; 83036; 83735; 84443; 84484; 85025; 85378; 87086; 93005; 93017; 96372; 96374; 96375; 99285; A4300; A9502; G0378; G0463; J0360; J1650; J2270; J7030; Q9967